=== PATIENT | male | born 1970 | race Caucasian/White ===

== ENCOUNTER 2023-06-24 08:29 | Emergency (ER) | payer OTHER, SELFPAY ==
[2023-06-24 08:31] VITALS: BP 204/85; PULSE 74; RESP 16; TEMP 35.8; O2SAT 99
[2023-06-24 08:40] VITALS: BMI 40.8
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
== END 2023-06-24 08:54 | disposition home or self-care (01) ==
LOC: ED 08:51
PROVIDERS: Emergency Provider Emergency Medicine; Visit Provider Emergency Medicine
DX: S16.1XXA Strain of muscle, fascia and tendon at neck level, initial encounter (principal); V49.40XA Driver injured in collision with unspecified motor vehicles in traffic accident, initial encounter
CPT/HCPCS: 99282

== ENCOUNTER 2024-11-25 14:19 | Emergency (ER) | payer OTHER, SELFPAY ==
[2024-11-25 14:20] VITALS: BP 181/88; PULSE 109; RESP 18; TEMP 37.1; O2SAT 97; BMI 39.4
--- NOTE | 2024-11-25 14:42 | US_ITS ---
PROCEDURE: TESTICULAR WITH ARTERIAL FLOW 11/25/2024 REASON FOR EXAM: RIGHT TESTICLE PAIN TECHNIQUE: TESTICULAR WITH ARTERIAL FLOW COMPARISON: None. FINDINGS: RIGHT testicle: 4.8 x 3.6 x 4.2 cm Homogeneous echotexture. No intratesticular mass. Right epididymis: Unremarkable. The right epididymal head is measured at 12 x 8 x 7 mm. LEFT testicle: 5.7 x 4.1 x 2.9 cm Homogeneous echotexture. No intratesticular mass. Left epididymis: The left epididymal head is measured at 12 x 18 x 6 mm. A somewhat inhomogeneous left epididymal head appearance is seen, but no increased blood flow is noted upon color Doppler evaluation, making this a nonspecific finding. Other findings: Moderate right hydrocele. No significant left-sided hydrocele is seen. No varicocele is seen on either side. DOPPLER FINDINGS: Symmetric color doppler blood flow signal at both testes. Normal arterial inflow and venous outflow waveforms at both testes. US/Testicular with Arterial Flow IMPRESSION: Moderate right hydrocele. No testicular abnormality is seen. Reading Location: [place] [id number]
--- NOTE | 2024-11-25 14:43 | EX.ED.GUMALE ---
HPI History of Present Illness Chief Complaint: Male Pain/Injury Narrative Narrative: Patient is a 53-year-old male with no known significant past medical history who presented to the emergency department with chief complaint of right testicular swelling. Patient notes that on Monday he noted that he developed swelling and pain on the right side he states that on Monday morning when he first peed he did have some pain with urination but states that this quickly resolved. He states that he did take Azo that his gave him and he drank cranberry juice as well. He states that as the day went on he felt like his testicles becoming more swollen and was uncomfortable. He states that he wanted to go to work today and then be evaluated by his physician after work. He states that he only mated to noon secondary to the pain and discomfort he went to the doctor's office and they advised him to come here to be further evaluated. PFSH PFSH Home Medications ?Medication ?Instructions ?Recorded ?Last Taken ?Type ciprofloxacin HCl 500 mg tablet 500 mg PO Q12H 10 days #20 tabs 11/25/24 Unknown Rx ibuprofen 200 mg tablet (Addaprin) 800 mg PO Q6H PRN pain 11/25/24 11/25/24 History multivitamin (Daily Multi-Vitamin 1 tab PO DAILY 11/25/24 Unknown History tablet) Allergy/AdvReac Type Severity Reaction Status Date / Time No Known Allergies Allergy Verified 11/25/24 14:20 Social History Smoking Status: Unknown if ever smoked ROS ROS ED ROS Narrative Constitutional: Denies any fevers, chills Abdomen: Denies abdominal pain nausea vomit diarrhea : Complains of right testicular pain and swelling as noted above denies any painful urination Neurological: Denies any numbness, wheeze, tingling Skin: Denies any rashes or lesions EXAM Physical Exam Narrative Exam Narrative: General: Patient lying in bed rest comfortably not appear to be acute distress Head: Atraumatic, normocephalic Eyes: PERRL bilaterally, EOMI by, no conjunctival injection noted Neck: Soft, supple, trachea midline Cardiovascular: Patient tachycardic with a regular rhythm Respiratory: Clear to auscultation bilaterally Abdomen: Soft, nondistended, nontender to palpation Genitourinary: Patient has no urethral discharge noted his right testicle is swollen and tense/firm to palpation. Patient does have erythema to the overlying scrotal skin on that side as well the left testicle is noted to be nontender to palpation. No tenderness palpation over the bilateral epididymides, no inguinal hernias noted Extremities: +5/5 strength noted in the bilateral upper and lower extremities Neurological: Patient following commands that he was at [facility] years 2024 Skin: See genitourinary Const Vital Signs: 11/25/24 14:20 Temperature 98.8 F Temperature Source Oral Pulse Rate 109 H Respiratory Rate 18 Blood Pressure 181/88 H Blood Pressure Mean 119 Pulse Ox 97 Oxygen Delivery Method Room Air MDM MDM MDM Narrative Medical decision making narrative: Patient is a 53-year-old male who presented to the emergency department with a chief complaint of right testicular pain and swelling. On the differential diagnose includes but limited to testicular torsion, cellulitis, orchitis, epididymitis, cancer. Once workup is obtained reviewed he will be reevaluated. Patient's urinalysis reviewed showed no evidence of infection. Patient's ultrasound of his testicles reviewed showed moderate right hydrocele no testicular abnormality noted. Patient had flow to both testicles normal arterial inflow and venous outflow of both testicles. Discussed case with on-call urologist Dr. Villafana who states that he recommend placing the patient on ciprofloxacin for 10 days and have him follow-up with him in the outpatient setting. I discussed this plan with the patient he is agreeable this plan he states that he feels that the swelling is decreasing as well. All question and concerns answered at bedside he was discharged home in stable condition with instructions to return with worsening symptoms or concerns Lab Data Labs: Laboratory Results - last 24 hr 11/25/24 15:30 Urine Color Straw Urine Clarity Clear Urine pH 6.5 Ur Specific [place] 1.005 Urine Protein Negative Urine Glucose (UA) Normal Urine Ketones Negative Urine Occult Blood Negative Urine Nitrite Negative Urine Bilirubin Negative Urine Urobilinogen Normal Ur Leukocyte Esterase Negative Urine RBC 0-5 SEEN Urine WBC 0-5 SEEN Ur Squamous Epith Cells 0 SEEN Urine Bacteria 0 SEEN Urine Mucus 0 SEEN Radiography Diagnostic Testing: Clinical Impression(s) from Imaging Studies Testicular Ultrasound 11/25/24 14:42 IMPRESSION: Moderate right hydrocele. No testicular abnormality is seen. Reading Location: [place] [id number] Discharge Plan Triage Chief Complaint: Male Pain/Injury ED Provider: Cristhian Alston Dx/Rx/DC Orders Clinical Impression: Swelling of right testicle, Hydrocele, right Prescriptions: New ciprofloxacin HCl 500 mg tablet 500 mg PO Q12H 10 Days Qty: 20 0RF No Action multivitamin [Daily Multi-Vitamin] Tablet 1 tab PO DAILY ibuprofen [Addaprin] 200 mg tablet 800 mg PO Q6H PRN (Reason: pain) Primary Care Provider: Care Physician,No Primary Referrals: Care Physician,No Primary [Primary Care Provider] - Shaun Villafana MD [Med Staff - Active Staff] - Activity Restrictions/Additional Instructions: Take antibiotics as prescribed these were sent to your pharmacy. Return with worsening symptoms or concerns. Wear tight fitting underwear for scrotal support. Follow-up with the urologist Dr. Villafana they referred to as well. Print Language: [place] Disposition Disposition: Home, Self Care
[2024-11-25 15:56] LABS: Bacteria 0 SEEN /hpf (None Seen); Mucous, Urine 0 SEEN /hpf (<or=2+); Squamous Epithelial Cells - UA 0 SEEN /hpf (0-5)
[2024-11-25 15:57] LABS: Color, Urine Straw (Yellow); Glucose, Dipstick Normal (Normal); Ketone-Dipstick Negative (Negative); Leukocyte Esterase-Dipstick Negative /ul (Negative); Nitrite-Dipstick Negative (Negative); Occult Blood-Urine Negative /ul (Negative); Protein-Dipstick Negative (Negative); Specific Gravity, Urine 1.005 (1.002-1.030); Urine Bilirubin Dipstick Negative (Negative); Urine Clarity Clear (Clear); Urine Urobilinogen Normal (Normal); Urine pH 6.5 (5.0 - 8.0)
[2024-11-25 16:31] LABS: Red Blood Cells-Urine 0-5 SEEN /hpf (0-5); White Blood Cells 0-5 SEEN /hpf (0-5)
[2024-11-25] MEDS: Ciprofloxacin 500 MG Tablet PO (17:34)
== END 2024-11-25 17:37 | disposition home or self-care (01) ==
PROVIDERS: Emergency Provider Emergency Medicine; Visit Provider Emergency Medicine
DX: N43.3 Hydrocele, unspecified (principal)
CPT/HCPCS: 76870; 81001; 93976; 99282